=== PATIENT | female | born 1975 | race Hispanic/Latino ===

== ENCOUNTER 2024-05-10 13:49 | Emergency (ER) | payer SELFPAY ==
[2024-05-10 13:52] VITALS: BP 146/100
[2024-05-10] MEDS: TORADOL 30 MG IM (15:14)
[2024-05-10] MEDS: LIDOCAINE URO-JET 2% 1 SYRINGE TOPICAL (15:14)
[2024-05-10 15:19] VITALS: BP 113/77
--- NOTE | 2024-05-10 16:31 | ED.GENMED ---
History of Present Illness
General
Chief Complaint: Anal/Rectal Problem
Time Seen by Provider: 05/10/24 15:02
Travel History
Have you had any contact with someone who has COVID-19?: No
Do you have any symptoms of coronavirus? Fever > 100 degrees, chills, cough, shortness of breath, sore throat, loss of taste or smell, muscle aches, or headache?: No
History of Present Illness
History of Present Illness:
48-year-old female presents the emergency department for evaluation of increased pain secondary to hemorrhoids. States she has been constipated for the past week and over the past 3 to 4 days her hemorrhoids have been increasingly painful. Denies
any gross rectal bleeding. Has tried stool softeners without relief
Past History
Past History
ED Past Medical History: Asthma and Other (Pneumonia )
ED Past Surgical History: Cholecystectomy and
Social History
Tobacco: Smoker (30 pack year)
Alcohol: None
Drug: None
Personal:
Living: with family
Employment: Employed
Family History
Family History: Diabetes (Mother) and Other (Noncontributory)
Review of Systems
Review of Systems
Allergies reviewed?: Yes
All Other Systems: ROS reviewed and negative except as documented in HPI and ROS
Phy Exam
Physical Exam
Physical Exam:
GEN: Well appearing, NAD, WDWN
HEENT: Oral mucosa moist, no scleral icterus
Cardiac: Regular rate
Lung: No respiratory distress, no tachypnea
MSK: No gross deformity or injuries
Skin: Good color, no pallor or jaundice, no rashes
Neuro: AO x3, moves all extremities freely
Psych: Calm, cooperative
Course
Orders/Labs/Results
Orders:
Orders
05/10/24 15:09
Ketorolac [Toradol] 30 mg IM NOW STA
Lidocaine 2% [Lidocaine Uro-Jet 2%] 1 syringe TOPICAL NOW STA
Vital Signs
Initial and Last Documented VS:
Initial Vital Signs
Temp Pulse Resp BP Pulse Ox
99.1 F 115 18 146/100 98
05/10/24 13:52 05/10/24 13:52 05/10/24 13:52 05/10/24 13:52 05/10/24 13:52
Last Documented Vital Signs
Temp Pulse Resp BP Pulse Ox
99.1 F 95 18 113/77 95
05/10/24 13:52 05/10/24 15:19 05/10/24 13:52 05/10/24 15:19 05/10/24 15:19
MDM/Problems Addressed
MDM/Problems Addressed:
The patient vehemently refused rectal exam patient. She states to me that she knows this is her hemorrhoids and she does not want a formal valuation. Will trial a course of hydrocortisone suppositories and refer to outpatient colorectal surgery
for evaluation
*Critical Care Note
Total Time (30-74mins, 75-104mins- exclusive of procedures): Not Applicable
ED Attending Note
-
Portions of this chart may have been created with voice recognition software.� Occasional wrong word or��sound alike� substitutions may have occurred due to the inherent limitations of voice recognition software.
Discharge Plan
Departure
Patient Disposition: Home (Routine Discharge)
Date of Disposition: 05/10/24
Time of Disposition: 16:32
Patient with high blood pressure during this ER visit?: No
Discharge Problem:
Hemorrhoids
Instructions: Hemorrhoids (DC), How to Do a Sitz Bath
Prescriptions:
New
hydrocortisone acetate [Anusol-HC] 25 mg suppository
25 mg NH HS Qty: 12 0RF
No Action
ibuprofen 800 MG tablet
800 mg PO QIDPRN PRN (Reason: pain, fever. Take with food.) Qty: 30 0RF
albuterol sulfate [Proventil HFA] 90 MCG/PUFF HFA aerosol inhaler
1 puff inhalation Q4HPRN PRN (Reason: shortness of breath) Qty: 1 0RF
Referrals:
Edmundo Fenton MD [Active] -
NONE,* [Family Provider] -
Activity Restrictions/Additional Instructions:
We suspect your symptoms are due to hemorrhoids however as you declined a rectal exam we cannot be certain. You may try the steroid suppositories for up to 7 days. Also consider sitz bath's to reduce pain after bowel movements as well as stool
softeners to reduce pressure with bowel movements. Follow-up with colorectal surgery as needed
Interventions
Interventions:
*Risk Screen - Suicide Last Done: 05/10/24 15:18
*General Assessment Last Done: 05/10/24 15:18
*Neglect/Abuse Screening Last Done: 05/10/24 15:18
ED- Fall Risk Assessment Last Done: 05/10/24 15:26
*ED COVID-19 Vaccine History Last Done: 05/10/24 15:18
*Nursing Disposition Last Done: 05/10/24 17:06
ED-Skin Assessment Last Done: 05/10/24 15:19
Discharge Date and Time
Discharge Date/Time: 05/10/24 17:06
Print Language: AMHARIC
== END 2024-05-10 17:06 | disposition home or self-care (01) ==
LOC: EMR 13:49
PROVIDERS: EMERGENCY PHYSICIAN Emergency Medicine
DX: K64.9 Unspecified hemorrhoids (principal); K59.00 Constipation, unspecified; J45.909 Unspecified asthma, uncomplicated; F17.210 Nicotine dependence, cigarettes, uncomplicated; Z83.3 Family history of diabetes mellitus; Z87.19 Personal history of other diseases of the digestive system; Z90.49 Acquired absence of other specified parts of digestive tract
CPT/HCPCS: 99283; 96372